=== PATIENT | female | born 1990 | race Caucasian/White ===

== ENCOUNTER 2022-10-19 15:06 | Emergency (ER) | payer OTHER ==
[2022-10-19 15:17] VITALS: BP 132/94; PULSE 126; RESP 20; TEMP 98.5
--- NOTE | 2022-10-19 17:02 | ED ---
Head Injury HPI - General Chief complaint: Head Injury Stated complaint: Head Injury Time Seen by Provider: 10/19/22 16:10 Source: patient Mode of arrival: ambulatory Limitations: no limitations - History of Present Illness Initial comments: Patient is a 32-year-old female presenting for medication refill. Patient states that she recently moved here from [place] and does not currently have a psychiatrist. She is currently out of her Effexor, Lamictal, and Klonopin. Patient also states that she hit her head on her car door today while opening it. There was no loss of consciousness and no blood thinners. There is a small amount of swelling to the forehead. Patient appears quite anxious, states that "I'm a hypochondriac". No nausea, vomiting, dizziness, numbness, tingling, weakness, vision or hearing changes. - Related Data Home Medications Medication Instructions Recorded Confirmed Advair(Unknown Dose) 1 puff INHALATION RT-BID 10/19/22 10/19/22 Venlafaxine HCl [Effexor XR] 112.5 mg PO DAILY 10/19/22 10/19/22 clonazePAM [KlonoPIN] 1 mg PO TID PRN 10/19/22 10/19/22 lamoTRIgine [LaMICtal] 200 mg PO DAILY 10/19/22 10/19/22 Previous Rx's Medication Instructions Recorded Venlafaxine HCl [Effexor] 37.5 mg PO TID #90 tab 10/19/22 lamoTRIgine [LaMICtal] 100 mg PO BID #60 tab 10/19/22 Allergies/Adverse reactions: Allergies Allergy/AdvReac Type Severity Reaction Status Date / Time sulfamethoxazole Allergy Anaphylaxis Verified 10/19/22 17:00 [From Bactrim] trimethoprim [From Bactrim] Allergy Anaphylaxis Verified 10/19/22 17:00 Review of Systems ROS Statement: Those systems with pertinent positive or pertinent negative responses have been documented in the HPI. ROS Other: All systems not noted in ROS Statement are negative. Past Medical History Past Medical History: COPD History of Any Multi-Drug Resistant Organisms: None Reported Past Surgical History: Adenoidectomy, Section, Cholecystectomy, Tonsillectomy Past Psychological History: Anxiety, Bipolar, Depression Smoking Status: Current every day smoker Past Alcohol Use History: Occasional Past Drug Use History: Marijuana General Exam Limitations: no limitations General appearance: alert, in no apparent distress, anxious Head exam: Present: atraumatic, normocephalic, normal inspection Eye exam: Present: normal appearance, EOMI. Absent: periorbital swelling Neck exam: Present: normal inspection, full ROM Neurological exam: Present: alert, oriented X3, CN II-XII intact Expanded Patient oriented to: Present: person, place, time Speech: Present: fluid speech Cranial nerves: EOM's Intact: Normal Eye Response: (4) open spontaneously Motor Response: (6) obeys commands Verbal Response: (5) oriented [place] Total: 15 Psychiatric exam: Present: agitated, anxious Skin exam: Present: warm, dry, intact, normal color. Absent: rash Course Vital Signs 10/19/22 15:13 Temperature 98.5 F Pulse Rate 126 H Respiratory 20 Rate Blood Pressure 132/94 O2 Sat by Pulse 97 Oximetry Medical Decision Making - Medical Decision Making Was pt. sent in by a medical professional or institution (, PA, ADMITTING REPRESENTATIVE, urgent care, hospital, or fpc...) When possible be specific @ -No Did you speak to anyone other than the patient for history (EMS, parent, family, police, friend...)? What history was obtained from this source @ -No Did you review nursing and triage notes (agree or disagree)? Why? @ -I reviewed and agree with nursing and triage notes Were old charts reviewed (outside hosp., previous admission, EMS record, old EKG, old radiological studies, urgent care reports/EKG's, fpc records)? Report findings @ -No old charts were reviewed Differential Diagnosis (chest pain, altered mental status, abdominal pain women, abdominal pain men, vaginal bleeding, weakness, fever, dyspnea, syncope, headache, dizziness, GI bleed, back pain, seizure, CVA, palpatations, mental health, musculoskeletal)? @ -not applicable EKG interpreted by me (3pts min.). @ -As above X-rays interpreted by me (1pt min.). @ -None done CT interpreted by me (1pt min.). @ -None done U/S interpreted by me (1pt. min.). @ -None done What testing was considered but not performed or refused? (CT, X-rays, U/S, labs)? Why? @ -None What meds were considered but not given or refused? Why? @ -None Did you discuss the management of the patient with other professionals (professionals i.e. DrAyana, PA, ADMITTING REPRESENTATIVE, lab, RT, psych nurse, social media sr strategy manager, snuff grinder, teacher, ordnance corps officer, case management manager)? Give summary @ -No Was smoking cessation discussed for >3mins.? @ -No Was critical care preformed (if so, how long)? @ -No Were there social determinants of health that impacted care today? How? (Homelessness, low income, unemployed, alcoholism, drug addiction, transportation, low edu. Level, literacy, decrease access to med. care, [facility], rehab)? @ -No Was there de-escalation of care discussed even if they declined (Discuss DNR or withdrawal of care, Hospice)? DNR status @ -No What co-morbidities impacted this encounter? (DM, HTN, Smoking, COPD, CAD, Cancer, CVA, ARF, Chemo, Hep., AIDS, mental health diagnosis, sleep apnea, morbid obesity)? @ -Bipolar Was patient admitted / discharged? Hospital course, mention meds given and route, prescriptions, significant lab abnormalities, going to OR and other pertinent info. @ -Patient is a 32-year-old female requesting medication refill as well as evaluation post head injury. Patient states she hit her head on her car door while opening it, no loss of consciousness or blood thinners. On physical examination there are no focal neurological deficits, GCS 15. CT unnecessary at this time according to [place] head CT rules. Patient is also requesting refills of her Effexor, Lamictal, and Klonopin. Explained to the patient that I am able to provide refills for the Effexor and Lamictal, instructed her to follow-up with her provider. States that she is in the process of finding a new psychiatric provider after moving from [place]. Patient is anxious and tearful. She was beginning to shout at the end of our interaction. Follow-up with PCP. Report back to ER with any new or worsening symptoms. Discussed return parameters and answered all questions. Patient conveyed verbal understanding and agreed to the plan. I discussed this case in detail with my attending Dr. Reis I'm told that she walked out of the ER prior to her discharge papers. Undiagnosed new problem with uncertain prognosis? @ -No Drug Therapy requiring intensive monitoring for toxicity (Heparin, Nitro, Insulin, Cardizem)? @ -No Were any procedures done? @ -No Diagnosis/symptom? @ -Medication refill Acute, or Chronic, or Acute on Chronic? @ -Acute Uncomplicated (without systemic symptoms) or Complicated (systemic symptoms)? @ -Uncomplicated Side effects of treatment? @ -No Exacerbation, Progression, or Severe Exacerbation? @ -No Poses a threat to life or bodily function? How? (Chest pain, [place], [place], pneumonia, PE, COPD, DKA, ARF, appy, cholecystitis, CVA, Diverticulitis, Homicidal, Suicidal, threat to staff... and all critical care pts) @ -No Diagnosis/symptom? @ Minor head injury Acute, or Chronic, or Acute on Chronic? @ Acute Uncomplicated (without systemic symptoms) or Complicated (systemic symptoms)? @ Uncomplicated Side effects of treatment? @ none Exacerbation, Progression, or Severe Exacerbation] @ no Poses a threat to life or bodily function? @ no Disposition Clinical Impression: Minor head injury, Medication refill Disposition: HOME SELF-CARE Condition: Good Instructions (If sedation given, give patient instructions): Head Injury (ED) Additional Instructions: Follow-up with PCP. Report back to ER with any new or worsening symptoms. Take medication as prescribed. Prescriptions: Venlafaxine HCl [Effexor] 37.5 mg PO TID #90 tab lamoTRIgine [LaMICtal] 100 mg PO BID #60 tab Is patient prescribed a controlled substance at d/c from ED?: No Referrals: None,Stated [Primary Care Provider] - 1-2 days Ramya Wang MD [STAFF PHYSICIAN] - 1-2 days Time of Disposition: 17:02
== END 2022-10-19 17:22 | disposition home or self-care (01) ==
LOC: EC 15:06
DX: Z76.0 Encounter for issue of repeat prescription (principal); S09.90XA Unspecified injury of head, initial encounter; J44.9 Chronic obstructive pulmonary disease, unspecified; F41.9 Anxiety disorder, unspecified; F31.9 Bipolar disorder, unspecified; F17.200 Nicotine dependence, unspecified, uncomplicated; F12.90 Cannabis use, unspecified, uncomplicated; Z79.899 Other long term (current) drug therapy; Z88.2 Allergy status to sulfonamides; Z79.51 Long term (current) use of inhaled steroids; W22.8XXA Striking against or struck by other objects, initial encounter
CPT/HCPCS: 99283